=== PATIENT | male | born 1995 | race Hispanic/Latino ===

== ENCOUNTER 2018-12-10 23:18 | Emergency (ER) | payer SELFPAY ==
[~2018-12-10] VITALS: Ht 175.3 cm; Wt 72.6 kg
--- NOTE | 2018-12-11 00:56 | Diagnostic Imaging Report ---
X-ray right foot 3 views HISTORY: Pain. COMPARISON: None available. FINDINGS: Bones: No acute displaced fracture. Osseous alignment is within normal limits. Joints: The joint spaces are well-maintained. Soft tissues: The soft tissues appear unremarkable. IMPRESSION: No acute radiographic abnormality. Signed by: Curtis Denney DO on 12/11/2018 12:52 AM
[2018-12-11 01:11] VITALS: BP 118/73
== END 2018-12-11 01:00 | disposition home or self-care (01) ==
LOC: ER 23:18
DX: S90.31XA Contusion of right foot, initial encounter (principal); W22.8XXD Striking against or struck by other objects, subsequent encounter; Y92.89 Other specified places as the place of occurrence of the external cause; Y99.0 Civilian activity done for income or pay
CPT/HCPCS: 99282

== ENCOUNTER 2020-07-29 13:56 | Emergency (ER) | payer SELFPAY ==
[~2020-07-29] VITALS: Ht 175.3 cm; Wt 72.6 kg
== END 2020-07-29 14:15 | disposition home or self-care (01) ==
LOC: ER 13:56
DX: R07.89 Other chest pain (principal); R20.2 Paresthesia of skin; R20.0 Anesthesia of skin; F17.210 Nicotine dependence, cigarettes, uncomplicated
CPT/HCPCS: 93005; 99282